=== PATIENT | male | born 1975 | race Caucasian/White ===

== ENCOUNTER 2024-10-07 00:48 | Day surgery (SDC) | payer BC, SELFPAY ==
[2024-10-01 09:26] VITALS: BMI 34.0
--- OUTSIDE RECORDS SUMMARY | 2024-10-07 00:52 | XMS_ITS | Clinical Summary ---
Author Organization [facility] Address [address] [place] [address] Care Team Providers Care Third Loader Name Role Phone Unavailable Primary Care Provider Unavailabl e Source Comments [facility],non-owned Affiliates and Associated Physician Practices is amultiple site organization consisting of ambulatory clinics and hospital sitesin [place], [place], [place] and [place]. This disclosure is being madepursuant to the Care Everywhere program and may not contain all information available regarding this patient. Last updated 18.[facility] Social History Tobacco Use Types Packs/Day Years Used Date Smoking Tobacco: Never Assessed Sex and Gender Information Value Date Recorded Sex Assigned at Not on file Gender Identity Not on file Sexual Orientation Not on file Plan of Treatment Health Maintenance Due Date Last Done Comments COLOGUARD (AGES 45-75) - COL ON CA SCREENING 1974 COLON MONITORING 1974 COLONOSCOPY - COLON CA SCREENING 1974 CT COLONOGRAPHY - COLON CA SCREENING 1974 Colorectal Cancer Screening 1974 FIT - COLON CA SCREENING 1974 FLEX SIG - COLON CA SCREENING 1974 LIPID TESTING 1974 HIV SCREENING 1989 HEPATITIS C SCREENING 12/22/1992 DTAP/TDAP/TD VACCINES (1 - Tdap) 1993 HEPATITIS B VACCINE (1 of 3 - 19+ 3-dose series) 1993 COVID-19 VACCINE ( - 2023-2 5 season) 2024 INFLUENZA VACCINE (#1) 2024 DEPRESSION SCREENING 08/13/2024 ZOSTER VACCINE (1 of 2) 2024 HIB VACCINE Aged Out No longer eligi ble based on patient's age to complete this topic HPV VACCINE Aged Out No longer eligi ble based on patient's age to complete this topic MENINGOCOCCAL (Group B) VACCINE Aged Out No longer eligible based on patient's age to complete this topic MENINGOCOCCAL VACCINE Aged Out No lamin carolina eligible based on patient's age to complete this topic PNEUMOCOCCAL VACCINE Aged Out No long er eligible based on patient's age [place] [address]
--- OUTSIDE RECORDS SUMMARY | 2024-10-07 00:52 | XMS_ITS | Referral Summary ---
Author Organization [facility] Address [address] [place] [address] Care Team Providers Care Suture Polisher Name Role Phone Unavailable Primary Care Provider Unavailabl e Source Comments [facility],non-owned Affiliates and Associated Physician Practices is amultiple site organization consisting of ambulatory clinics and hospital sitesin [place], [place], [place] and [place]. This disclosure is being madepursuant to the Care Everywhere program and may not contain all information available regarding this patient. Last updated 18.[facility] Social History Tobacco Use Types Packs/Day Years Used Date Smoking Tobacco: Never Assessed Sex and Gender Information Value Date Recorded Sex Assigned at Not on file Gender Identity Not on file Sexual Orientation Not on file Plan of Treatment Not on file
--- OUTSIDE RECORDS SUMMARY | 2024-10-07 00:52 | XMS_ITS | Patient Health Summary ---
Author Organization [facility] Address [address] [place] [address] Care Team Providers Care Bread Oven Operator Name Role Phone Unavailable Primary Care Provider Unavailabl e Note from [facility],non-owned Affiliates and Associated Physician Practices is amultiple site organization consisting of ambulatory clinics and hospital sitesin [place], [place]. This disclosure is being madepursuant to the Care Everywhere program and may not contain all information available regarding this patient. Last updated 18.[facility] Social History Tobacco Use Types Packs/Day Years Used Date Smoking Tobacco: Never Assessed Sex and Gender Information Value Date Recorded Sex Assigned at Not on file Gender Identity Not on file Sexual Orientation Not on file Procedures * DERMATOPATHOLOGY(Performed 03/12/2023) Performed for Basal cell carcinoma of skin of right upper limb, including shoulder, Neoplasm of uncertain behavior of skin Results * DERMATOPATHOLOGY (03/12/2023 12:00 AM CDT) Case Report Dermatopathology Report Case: [id number] Authorizing Provider: Andrew Lai MD Collected: 03/12/2023 12:00 AM Ordering Location: [facility] DermPath Lab Received: 03/14/2023 02:03 PM Pathologist: Salma Neff MD Specimens: A) - Skin, right posterior shoulder B) - Skin, right upper back 1:50 PM CDT DERMATOPATHOLOGY LABORATORY Final Diagnosis Specimen A. 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 SKIN, right upper back: BASAL CELL CARCINOMA, NODULAR TYPE (C44.519) 1:50 PM CDT DERMATOPATHOLOGY LABORATORY Clinical History A: Basal Cell Carcinoma. Check Margins. B: Basal Cell Carcinoma. 1:50 PM [facility] DERMATOPATHOLOGY LABORATORY Gross Description Specimen A: Received is one formalin filled container labeled with the patient's name and designated right posterior shoulder. The specimen consists of a non-oriented ellipse of skin measuring [id number] mm. The epidermal surface is unremarkable. The margin is inked green. The 12 o'clock and 6 o'clock tips are submitted in cassette 1. The remainder of the ellipse is serially sectioned and submitted in cassette 2-4. Jar 0. Specimen B: Received is one formalin filled container labeled with the patient's name and designated right upper back. The specimen consists of a shave biopsy measuring 11x7x1 mm. Jar 0. 1:50 PM [facility] DERMATOPATHOLOGY LABORATORY Microscopic Description Specimen A. SKIN, right posterior shoulder: Within the dermis there are aggregates of basaloid cells with a high nuclear to cytoplasmic ratio and peripheral palisading. This lesion is not present at the margin of the specimen. There is a cup-shaped invagination filled with cornified material and surrounded by slight epidermal hyperplasia in association with acantholytic dyskeratosis. This lesion is not present at the margin of the specimen. There are fibroblasts and collagen bundles oriented parallel to the skin surface with elongated blood vessels, some of which are oriented perpendicular to the skin surface. Specimen B. SKIN, right upper back: Within the dermis there are aggregates of basaloid cells with a high nuclear to cytoplasmic ratio and peripheral palisading. 1:50 PM [facility] DERMATOPATHOLOGY LABORATORY Disclaimer An external and internal positive and negative controls are appropriate for the histochemical, immunohistochemical and immunofluorescence stain(s) in this case (if any), except where stated explicitly. The performance characteristics of the stain(s) cited in this report were developed and its performance characteristic determined by the Dermatopathology Laboratory at [facility], directed by Dr. Yessenia Ibrahim. These tests need not be, and therefore are not, approved by the [place] Food and Drug Administration. The tests are used for clinical purposes. Billing Codes Specimen Charges Stain Charges 56672 [id number] 1 1 3 1:50 PM [facility] DERMATOPATHOLOGY LABORATORY Embedded Images 1:50 PM CDT DERMATOPATHOLOGY LABORATORY Pathology/Cytology TISSUE SPECIMEN FROM SKIN / Unknown 03/12/2023 03/14/2023 2:03 PM CDT Miscellaneous samples (specimen) TISSUE SPECIMEN FROM SKIN / Unknown 03/12/2023 03/14/2023 2:03 PM CDT Andrew Lai MD LAB - PATHOLOGY/CYTO LOGY ORDERABLES DERMATOPATHOLOGY LABORATORY [facility] - Department of Dermatology [facility] Specialized Medicine [address] [place] [address], [address] [phone]
--- OUTSIDE RECORDS SUMMARY | 2024-10-07 00:52 | XMS_ITS | Encounter Summary ---
Author Organization [facility] Address [address] [place] [address] Care Team Providers Care Power Press Operator Name Role Phone Unavailable Primary Care Provider Unavailabl e Encounter Details Date Type Department Care Team (Late st Contact Info) Description 03/13/2023 Lab Requisition [facility] - DermPath Lab [address] [place] [phone] Andrew Lai MD [facility] DERMATOLOGY [address] [place] [phone] Basal cell carcinoma of skin of right upper limb, including shoulder; Neoplasm of uncertain behavior of skin Social History Tobacco Use Types Packs/Day Years Used Date Smoking Tobacco: Never Assessed Sex and Gender Information Value Date Recorded Sex Assigned at Not on file Gender Identity Not on file Sexual Orientation Not on file documented as of this encounter Plan of Treatment Not on file documented as of this encounter Procedures Procedure Name Priority Date/Time Associated Diagnosis Comments DERMATOPATHOLOGY Routine 03/12/2023 12:0 0 AM CDT Basal cell carcinoma of skin of right upper limb, including shoulder Neoplasm of uncertain behavior of skin documented in this encounter Results * DERMATOPATHOLOGY (03/12/2023 12:00 AM CDT) Case Report Dermatopathology Report Case: [id number] Authorizing Provider: Andrew Lai MD Collected: 03/12/2023 12:00 AM Ordering Location: [facility] DermPath Lab Received: 03/14/2023 02:03 PM Pathologist: [...] CELL CARCINOMA, NODULAR TYPE (C44.519) 1:50 PM [facility] DERMATOPATHOLOGY LABORATORY Clinical History A: Basal Cell Carcinoma. Check Margins. B: Basal Cell Carcinoma. 1:50 PM [facility] DERMATOPATHOLOGY LABORATORY Gross Description Specimen A: Received is one formalin filled container labeled with the patient's name and designated right posterior shoulder. The specimen consists of a non-oriented ellipse of skin measuring 29o27n1 mm. The epidermal surface is unremarkable. The [...] 11x7x1 mm. Jar 0. 1:50 PM [facility] DERMATOPATHOLOGY LABORATORY Microscopic Description Specimen A. SKIN, [...] ratio and peripheral palisading. 1:50 PM [facility] DERMATOPATHOLOGY LABORATORY Disclaimer An external and internal positive and negative controls are appropriate for the histochemical, immunohistochemical and immunofluorescence stain(s) in this case (if any), except where stated explicitly. The performance characteristics of the stain(s) cited in this report were developed and its performance characteristic determined by the Dermatopathology Laboratory at [facility] directed by Dr. Yessenia Ibrahim. These tests need not be, and therefore are not, approved by the [place] Food and Drug Administration. The tests are used for clinical purposes. Billing Codes Specimen Charges Stain Charges [id number] 1 1 3 1:50 PM CDT DERMATOPATHOLOGY LABORATORY Embedded Images 3 1:50 PM CDT DERMATOPATHOLOGY LABORATORY Pathology/Cytology TISSUE SPECIMEN FROM SKIN / Unknown 03/12/2023 03/14/2023 2:03 PM CDT Miscellaneous samples (specimen) TISSUE SPECIMEN FROM SKIN / Unknown 03/12/2023 03/14/2023 2:03 PM CDT Andrew Lai MD LAB - PATHOLOGY/CYTO LOGY ORDERABLES DERMATOPATHOLOGY LABORATORY [facility] - Department of Dermatology [address], [address] [phone] documented in this encounter Visit Diagnoses Diagnosis Basal cell carcinoma of skin of right upper limb, including shoulder Basal cell carcinoma of skin of upper limb, including shoulder Neoplasm of uncertain behavior of skin documented in this encounter
[2024-10-07 08:06] VITALS: BP 147/108; PULSE 80; RESP 18; TEMP 36.2; O2SAT 99; BMI 33.4
--- NOTE | 2024-10-07 08:11 | P.PNAN_ITS ---
Anes - Initial Pre Proc Eval Procedure: Operation Date: 10/07/24 09:30 Proposed Procedures p Screening Colonoscopy - Favio Bartholomew MD Date/Time: 10/07/24 08:11 Surgeon: Favio Bartholomew MD Pre Op Diagnosis: screening colon Patient Data Age: 48 Gender: M Height: 1.83 m Weight: 111.9 kg Last Vital Signs Temp 36.2 C L 10/07/24 08:06 Pulse 80 10/07/24 08:06 Resp 18 10/07/24 08:06 BP 147/108 H 10/07/24 08:06 Pulse Ox 99 10/07/24 08:06 O2 Del Method Room Air 10/07/24 08:06 Allergies Allergy/AdvReac Type Severity Reaction Status Date / Time Sulfa (Sulfonamide Allergy Unknown Unknown Verified 10/07/24 08:04 Antibiotics) tetracycline Allergy Unknown Unknown Verified 10/07/24 08:04 Penicillins Allergy Unknown Verified 10/07/24 08:04 Home Medications ?Medication ?Instructions ?Recorded ?Confirmed ?Type albuterol sulfate 90 mcg/actuation 1 puff inhalation PRN asthma 10/01/24 10/07/24 History aerosol inhaler diltiazem HCl 180 mg capsule,24 180 mg PO DAILY 10/01/24 10/07/24 History hr,extended release flecainide 100 mg tablet 100 mg PO DAILY 10/01/24 10/07/24 History montelukast 10 mg tablet 10 mg PO QPM 10/01/24 10/07/24 History pantoprazole 40 mg tablet,delayed 40 mg PO DAILY 10/01/24 10/07/24 History release Results Review: All pre-operative results and documents have been reviewed as part of the pre- operative evaluation. [facility] Past Medical History Medical History (Updated 10/07/24 @ 08:11 by Wm Ornelas DO) Asthma Atrial fibrillation Social History Social History Alcohol intake: current Drinks per week: 20 Living arrangements: with family Spiritual care concerns: No Anes - Eval Final PreProcedure Day of Procedure 10/07/24 08:11 Patient weight: obese Heart: regular rate and rhythm Lungs: clear to auscultation Airway: Mallampati scale class II Neurological: alert and oriented Last oral intake: >/= 8 hours ASA classification: III Emergent: no Anesthetic plan: proceed Anesthesia type and monitoring: general GIVS and standard monitoring Results Review: All pre-operative results and documents have been reviewed as part of the pre- operative evaluation. Informed Consent: The patient's anesthetic plan and its attendant risks and benefits were discussed with the patient/family/POA. Questions were solicited and answers provided to the satisfaction of the patient/family/POA.
[2024-10-07] MEDS: LACTATED RINGERS 1,000 ML 150 ML IV CONT (08:14)
--- NOTE | 2024-10-07 08:39 | SUR.PREOP ---
SAMARIA Diaz Cripps notified of patients elevated BP, MAP 118. Patient verbalizes being extremely nervous/anxious. Pt took his Diltiazem this morning. Per Emily, will monitor for now.
--- NOTE | 2024-10-07 08:59 | PM.HPGS ---
History of Present Illness History of Present Illness Consent: Risks, benefits, and alternatives have been discussed and questions answered. Patient agrees to proceed with procedure. Chief complaint: screening colon Narrative: Deonte Barr is a 48 year old male here for first screening colonoscopy Review of Systems Review of Systems: All systems reviewed & are unremarkable except as noted in HPI and below PMFSH Past Medical History Medical History (Updated 10/07/24 @ 08:59 by Favio Bartholomew MD) Colon cancer screening Asthma Atrial fibrillation Social History Social History Alcohol intake: current Drinks per week: 20 Living arrangements: with family Spiritual care concerns: No Meds Home Medications and Allergies Home Medications ?Medication ?Instructions ?Recorded ?Confirmed ?Type albuterol sulfate 90 mcg/actuation 1 puff inhalation PRN asthma 10/01/24 10/07/24 History aerosol inhaler diltiazem HCl 180 mg capsule,24 180 mg PO DAILY 10/01/24 10/07/24 History hr,extended release flecainide 100 mg tablet 100 mg PO DAILY 10/01/24 10/07/24 History montelukast 10 mg tablet 10 mg PO QPM 10/01/24 10/07/24 History pantoprazole 40 mg tablet,delayed 40 mg PO DAILY 10/01/24 10/07/24 History release Allergies Allergy/AdvReac Type Severity Reaction Status Date / Time Sulfa (Sulfonamide Allergy Unknown Unknown Verified 10/07/24 08:04 Antibiotics) tetracycline Allergy Unknown Unknown Verified 10/07/24 08:04 Penicillins Allergy Unknown Verified 10/07/24 08:04 Vital Signs Vital Signs - 24 hr 10/07/24 08:06 Temperature 97.1 F L Pulse Rate 80 Respiratory Rate 18 Blood Pressure 147/108 H Pulse Oximetry 99 Oxygen Delivery Room Air Exam Const: General: comfortable and no acute distress HENMT: Face/Nose/Sinus: Normal nares present Eyes: General: appearance normal, both eyes and all related structures Neck: Neck: no JVD Resp: Auscultation: clear to auscultation bilaterally Cardio: Rate: regular rate Rhythm: regular rhythm GI: Inspection: non-distended GI Palp: Yes Soft to palpation Skin: General skin exam: normal color Neuro: General: gait normal Speech: normal speech Extrem: General: normal to inspection Psych: Mental Status: mental status grossly normal Assessment and Plan Assessment and plan (1) Colon cancer screening: Code(s): Z12.11 - Encounter for screening for malignant neoplasm of colon Status: Acute Assessment and Plan: colonoscopy
[2024-10-07 09:15] VITALS: BP 113/80; PULSE 77; RESP 19; O2SAT 94
[2024-10-07 09:25] VITALS: BP 107/76; PULSE 70; RESP 15; O2SAT 97
[2024-10-07 09:35] VITALS: PULSE 72; RESP 18; O2SAT 98
== END 2024-10-07 09:52 | disposition home or self-care (01) ==
PROVIDERS: PCP Physician Assistant; Visit Provider Internal Medicine Gastroenterology
PROC: 0DJD8ZZ Inspection of Lower Intestinal Tract, Via Natural or Artificial Opening Endoscopic (ICD-10-PCS; CPT 45378; principal; 2024-10-07 09:30)
DX: Z12.11 Encounter for screening for malignant neoplasm of colon (principal); K57.30 Diverticulosis of large intestine without perforation or abscess without bleeding; K64.8 Other hemorrhoids
CPT/HCPCS: 45378; J2003; J2704; J7120